=== PATIENT | female | born 1960 | race American Indian/Alaskan Native ===

== ENCOUNTER 2021-08-26 04:40 | Emergency (ER) | payer MEDICAID ==
[~2021-08-26] VITALS: Ht 165.1 cm; Wt 68.0 kg
[2021-08-26] MEDS ORDERED: POTASSIUM CHLO20 ME1 PO (06:49)
[2021-08-26] MEDS ORDERED: PROTONIX40 MG PO (06:49)
[2021-08-26] MEDS ORDERED: HYDROCODON-ACE1 EA10 PO (06:49)
--- NOTE | 2021-08-27 19:08 | EKG ---
[facility] [address] [place], [place] [address] Signed Normal sinus rhythm Minimal voltage criteria for LVH, may be normal variant ( R in aVL ) Borderline ECG No previous ECGs available Confirmed by EDITA MALIK MD ([id number]) on 08/27/2021 7:08:03 PM Electronically Signed By: EDITA MALIK MD 08/27/21 1908 PATIENT NAME: FAIZA MORALES Electrocardiogram DATE OF : 56 PHYSICIAN: EDITA MALIK MD REPORT #: [id number] REPORT IS CONFIDENTIAL AND NOT TO BE RELEASED WITHOUT AUTHORIZATION
== END 2021-08-26 07:04 | disposition home or self-care (01) ==
LOC: ED 04:40
DX: R07.9 Chest pain, unspecified (principal); E87.6 Hypokalemia; Z86.73 Personal history of transient ischemic attack (TIA), and cerebral infarction without residual deficits; Z88.0 Allergy status to penicillin
CPT/HCPCS: 36415; 71045; 80053; 84484; 85025; 93005; 93010; 96374; 96375; 99285-25; A9270; C9113; J1885; J2405